=== PATIENT | male | born 1985 | race Caucasian/White ===

== ENCOUNTER 2018-08-17 12:37 | Emergency (ER) | payer OTHER, SELFPAY ==
[2018-08-17 12:53] VITALS: BP 145/94; PULSE 89; RESP 16; TEMP 36.9; O2SAT 100
--- NOTE | 2018-08-17 14:52 | ED.ABDPAIN ---
HPI - Abdominal Pain <ORI EspinozaP - Last Filed: 08/17/18 17:59> General Chief Complaint: Abdominal Pain Stated Complaint: ABDOMINAL PAIN Time Seen by Provider: 08/17/18 14:44 Source: patient Mode of arrival: ambulatory Limitations: no limitations History of Present Illness HPI narrative: pt c/o abd pain x2 weeks complaint: abdominal pain Onset (ago): week(s) (2) Pain Consistency: constant Location: RLQ Severity: moderate Quality: sharp Radiation: none Migration to: no migration Relieving factors: nothing Exacerbating factors: movement Associated symptoms: denies other symptoms Related Data Home Medications Medication Instructions Recorded Confirmed fluticasone [Flonase Allergy 1 spray INTRANASAL DAILY PRN 08/17/18 08/17/18 Relief] pseudoephedrine HCl [Sudafed] 30 mg PO PRN PRN 08/17/18 08/17/18 temazepam 15 - 30 mg PO BEDTIME PRN 08/17/18 08/17/18 Previous Rx's Medication Instructions Recorded tramadol [Ultram] 50 mg PO Q6H PRN #20 tab 08/17/18 Allergies Allergy/AdvReac Type Severity Reaction Status Date / Time No Known Drug Allergies Allergy Verified 08/17/18 12:53 Review of Systems <ORI EspinozaP - Last Filed: 08/17/18 17:59> Constitutional Reports as per HPI Cardiovascular Denies chest pain and Denies dyspnea Respiratory Denies dyspnea Gastrointestinal Gastrointestinal: Reports as per HPI, Reports abdominal pain, Denies melena, Denies hematochezia, Denies constipation, Denies diarrhea and Denies vomiting Genitourinary Denies dysuria Musculoskeletal Denies back pain Exam <HARINDER Espinoza - Last Filed: 08/17/18 17:59> Initial Vital Signs Initial Vital Signs: Vital Signs Temperature 98.5 F 08/17/18 12:53 Pulse Rate 89 08/17/18 12:53 Respiratory Rate 16 08/17/18 12:53 Blood Pressure 145/94 H 08/17/18 12:53 Pulse Oximetry 100 08/17/18 12:53 Const General: cooperative, healthy appearing, comfortable and well developed Nutritional Appearance: average body habitus Orientation: alert, awake and oriented x3 Resp Effort & Inspection: normal respiratory effort and able to speak in complete sentences Auscultation: clear to auscultation bilaterally Cardio Rate: regular rate Rhythm: regular rhythm Heart Sounds: S1 normal and S2 normal GI Inspection: normal to inspection Palpation: soft, No rigid and tender (RLQ) Auscultation: normal bowel sounds Back/Spine/Pelvis Cervical Spine: cervical ROM normal Thoracic/Lumbar Spine: thoraco-lumbar ROM limited Skin General: no rashes or lesions noted, elasticity normal, turgor normal and warm Neuro General: alert, awake and oriented x3 Cranial Nerves: CN's II-XI intact bilaterally Cognition: normal cognition Speech: speech normal Motor: muscle tone normal throughout Sensory Exam: no sensory deficits noted Psych Appearance: grossly normal and well kempt Mental Status: mental status grossly normal Speech and Movement: speech and movement normal Mood: congruent mood Affect: normal affect Attitude: cooperative Thought Process: normal Thought Content: normal Judgment: judgment good <Kylee Wagner DO - Last Filed: 08/18/18 20:46> Initial Vital Signs Initial Vital Signs: Vital Signs Temperature 98.5 F 08/17/18 12:53 Pulse Rate 89 08/17/18 12:53 Respiratory Rate 16 08/17/18 12:53 Blood Pressure 145/94 H 08/17/18 12:53 Pulse Oximetry 100 08/17/18 12:53 Course <HARINDER Espinoza - Last Filed: 08/17/18 17:59> Course Narrative: results and dc plan discussed Orders Ordered: Discontinued Medications Sodium Chloride (Normal Saline 0.9%) 1,000 mls @ 1,000 mls/hr IV BOLUS ONE Stop: 08/17/18 15:58 Last Infusion: 08/17/18 16:43 Dose: 0 mls/hr Admin: 08/17/18 15:29 Dose: 1,000 mls/hr Ketorolac Tromethamine (Toradol) 30 mg IV NOW ONE Stop: 08/17/18 15:00 Last Admin: 08/17/18 15:29 Dose: 30 mg Vital Signs - 8 hr 08/17/18 12:53 08/17/18 16:10 Temperature 98.5 F Pulse Rate 89 87 Respiratory Rate 16 18 Blood Pressure 145/94 H Blood Pressure [Right Arm] 140/92 H Pulse Oximetry 100 100 <Kylee Wagner DO - Last Filed: 08/18/18 20:46> Orders Ordered: Discontinued Medications Sodium Chloride (Normal Saline 0.9%) 1,000 mls @ 1,000 mls/hr IV BOLUS ONE Stop: 08/17/18 15:58 Last Infusion: 08/17/18 16:43 Dose: 0 mls/hr Admin: 08/17/18 15:29 Dose: 1,000 mls/hr Ketorolac Tromethamine (Toradol) 30 mg IV NOW ONE Stop: 08/17/18 15:00 Last Admin: 08/17/18 15:29 Dose: 30 mg Vital Signs - 8 hr 08/17/18 12:53 08/17/18 16:10 Temperature 98.5 F Pulse Rate 89 87 Respiratory Rate 16 18 Blood Pressure 145/94 H Blood Pressure [Right Arm] 140/92 H Pulse Oximetry 100 100 MDM - Abdominal Pain <HARINDER Espinoza - Last Filed: 08/17/18 17:59> Differential Diagnosis Differential diagnosis: Likely abdominal pain, acute appendicitis, calculus of kidney, diverticulitis and gastroenteritis Lab Data Result diagrams: 08/17/18 15:25 08/17/18 15:25 Lab Results 08/17/18 08/17/18 08/17/18 Range/Units 15:25 15:25 15:25 WBC 10.7 (4.5-11.0) X10^3/uL RBC 4.71 (4.5-5.9) X10^6/uL Hgb 14.5 (13.5-17.5) g/dL Hct 41.8 (41-53) % MCV 88.8 (80-100) fL MCH 30.8 (26-34) PG MCHC 34.7 (30-36) % RDW 13.3 (11.6-14.8) % Plt Count 338 (150-400) X10^3/uL Neut % (Auto) 48.5 L (50-75) % Lymph % (Auto) 32.7 (25-40) % [place] % (Auto) 9.6 (3-14) % Eos % (Auto) 8.9 H (2-4) % Baso % (Auto) 0.3 (0-2) % Neut # (Auto) 5200 (7596-1890) /uL Sodium 145 (137-145) mmol/L Potassium 4.0 (3.4-5.1) mmol/L Chloride 104 (98-107) mmol/L Carbon Dioxide 29 (22-32) mmol/L BUN 12 (9-20) mg/dL Creatinine 0.80 (0.66-1.25) mg/dL Estimated GFR > 60.0 (>60) mL/min BUN/Creatinine Ratio 15.0 (6-22) Glucose 85 (70-100) mg/dL Calcium 9.2 (8.4-10.2) mg/dL Total Bilirubin 0.6 (0.2-1.3) mg/dL AST 19 (17-59) IU/L ALT 28 (21-72) IU/L Alkaline Phosphatase 41 (38-126) U/L Total Protein 7.4 (6.3-8.2) g/dL Albumin 4.7 (3.5-5.0) g/dL Globulin 2.7 (1.7-4.1) g/dL Albumin/Globulin Ratio 1.7 (1.0-2.8) Amylase 43 (30-110) U/L Lipase 37 (23-300) U/L Urine Color Cancelled Urine Appearance Cancelled Urine pH Cancelled Ur Specific [place] Cancelled Urine Protein Cancelled Urine Glucose (UA) Cancelled Urine Ketones Cancelled Urine Occult Blood Cancelled Urine Nitrate Cancelled Urine Bilirubin Cancelled Urine Urobilinogen Cancelled Ur Leukocyte Esterase Cancelled Point of care testing: Urine Dip Bedside Urine Glucose 100 mg/dl Bedside Urine Bilirubin - Negative Bedside Urine Ketone - Negative Urine Specific [place] 1.010 Bedside Urine Occult Blood - Negative Bedside Urine Protein - Negative Bedside Urine Urobilinogen - Negative Bedside Urine Nitrite - Negative Bedside Urine Leukocytes - Negative Esterase Imaging Data CT scan - abdomen: Radiologist's impression: [address] [id number] [address] Scan Report Signed Patient: Sam Reyes WMR#: [id number] : 1985Acct:[id number] Age/Sex: 32 / MDate of Service: 08/17/18 Loc: ED Accession Number: [id number] Procedure: CT abdomen pelvis w con Ordering Provider: Rosalia Martinez PROCEDURE: CT ABDOMEN PELVIS W CON INDICATIONS: abdomen pain TECHNIQUE: After the administration of intravenous contrast, 5 mm thick sections acquired from the diaphragm to the symphysis. 5 mm coronal and sagittal reformats were acquired. For radiation dose reduction, the following was used: automated exposure control, adjustment of mA and/or kV according to patient size. COMPARISON: [facility], CT, ABDOMEN/PELVIS WITH CONTRAST, 03/24/2017, 16:14. FINDINGS: Image quality: Excellent. ABDOMEN: Lung bases: Lung bases are clear. Heart size is normal. Solid organs: Liver is normal in size and enhancement. Gallbladder is surgically absent.. Biliary system is non dilated. Pancreas enhances normally. Spleen is surgically absent. No adrenal nodules. Kidneys demonstrate normal size and enhancement, without hydronephrosis. Peritoneum and bowel: Bowel loops demonstrate normal wall thickness and caliber. No free fluid or air. Mild fecal stasis in the colon is seen. Appendix is visualized and is within normal limits. Mild sigmoid diverticulosis is seen, no evidence of acute diverticulitis. Nodes and vessels: No retroperitoneal or mesenteric adenopathy by size criteria. Aorta and inferior vena cava are normal in size. Miscellaneous: No ventral hernias. PELVIS: Genitourinary: Bladder wall thickness is normal. Miscellaneous: No inguinal hernias or adenopathy. Bones: No suspicious bony lesions. No vertebral body compression fractures. IMPRESSION: 1. Normal appendix. No bowel obstruction. Sigmoid diverticulosis with no CT evidence of acute diverticulitis. No free fluid or free air. 2. Prior cholecystectomy and splenectomy. Dictated by: Waldemar Marie M.D. on 08/17/2018 at 15:49 Approved by: Waldemar Marie M.D. on 08/17/2018 at 15:59 <Kylee Wagner DO - Last Filed: 08/18/18 20:46> Lab Data Lab Results 08/17/18 08/17/18 08/17/18 Range/Units 15:25 15:25 15:25 WBC 10.7 (4.5-11.0) X10^3/uL RBC 4.71 (4.5-5.9) X10^6/uL Hgb 14.5 (13.5-17.5) g/dL Hct 41.8 (41-53) % MCV 88.8 (80-100) fL MCH 30.8 (26-34) PG MCHC 34.7 (30-36) % RDW 13.3 (11.6-14.8) % Plt Count 338 (150-400) X10^3/uL Neut % (Auto) 48.5 L (50-75) % Lymph % (Auto) 32.7 (25-40) % [place] % (Auto) 9.6 (3-14) % Eos % (Auto) 8.9 H (2-4) % Baso % (Auto) 0.3 (0-2) % Neut # (Auto) 5200 (7376-8617) /uL Sodium 145 (137-145) mmol/L Potassium 4.0 (3.4-5.1) mmol/L Chloride 104 (98-107) mmol/L Carbon Dioxide 29 (22-32) mmol/L BUN 12 (9-20) mg/dL Creatinine 0.80 (0.66-1.25) mg/dL Estimated GFR > 60.0 (>60) mL/min BUN/Creatinine Ratio 15.0 (6-22) Glucose 85 (70-100) mg/dL Calcium 9.2 (8.4-10.2) mg/dL Total Bilirubin 0.6 (0.2-1.3) mg/dL AST 19 (17-59) IU/L ALT 28 (21-72) IU/L Alkaline Phosphatase 41 (38-126) U/L Total Protein 7.4 (6.3-8.2) g/dL Albumin 4.7 (3.5-5.0) g/dL Globulin 2.7 (1.7-4.1) g/dL Albumin/Globulin Ratio 1.7 (1.0-2.8) Amylase 43 (30-110) U/L Lipase 37 (23-300) U/L Urine Color Cancelled Urine Appearance Cancelled Urine pH Cancelled Ur Specific [place] Cancelled Urine Protein Cancelled Urine Glucose (UA) Cancelled Urine Ketones Cancelled Urine Occult Blood Cancelled Urine Nitrate Cancelled Urine Bilirubin Cancelled Urine Urobilinogen Cancelled Ur Leukocyte Esterase Cancelled Point of care testing: Urine Dip Bedside Urine Glucose 100 mg/dl Bedside Urine Bilirubin - Negative Bedside Urine Ketone - Negative Urine Specific [place] 1.010 Bedside Urine Occult Blood - Negative Bedside Urine Protein - Negative Bedside Urine Urobilinogen - Negative Bedside Urine Nitrite - Negative Bedside Urine Leukocytes - Negative Esterase Discharge Plan Departure Patient Disposition: Home Clinical Impression: Abdominal pain Discharge Date/Time: 08/17/18 16:44 Interventions: ED Discharge Assessment Last Done: 08/17/18 16:43 Instructions: DI for Abdominal Pain-Adult Prescriptions: New tramadol [Ultram] 50 mg tablet 50 mg PO Q6H PRN (Reason: pain) Qty: 20 RF: 0 No Action temazepam 15 mg capsule 15 - 30 mg PO BEDTIME PRN (Reason: Insomnia) RF: 0 pseudoephedrine HCl [Sudafed] 30 mg Tablet 30 mg PO PRN PRN (Reason: Allergy Symptoms) RF: 0 fluticasone [Flonase Allergy Relief] 50 mcg/actuation [place],Suspension 1 spray Intranasal DAILY PRN (Reason: Allergy Symptoms) RF: 0 Referrals: Khalida Day PA-C [Primary Care Provider] - (in approx 2-3 days ) <Kylee Wagner DO - Last Filed: 08/18/18 20:46> Cosign ED Attending Cosignature Attestation: I was immediately available in the department for consultation. This documentation has been reviewed and I agree with assessment and plan. Supervised by Kylee Wagner DO
--- NOTE | 2018-08-17 15:00 | DI.CT.S_ITS ---
PROCEDURE: CT ABDOMEN PELVIS W CON INDICATIONS: abdomen pain TECHNIQUE: After the administration of intravenous contrast, 5 mm thick sections acquired from the diaphragm to the symphysis. 5 mm coronal and sagittal reformats were acquired. For radiation dose reduction, the following was used: automated exposure control, adjustment of mA and/or kV according to patient size. COMPARISON: [facility], CT, ABDOMEN/PELVIS WITH CONTRAST, 03/24/2017, 16:14. FINDINGS: Image quality: Excellent. ABDOMEN: Lung bases: Lung bases are clear. Heart size is normal. Solid organs: Liver is normal in size and enhancement. Gallbladder is surgically absent.. Biliary system is non dilated. Pancreas enhances normally. Spleen is surgically absent. No adrenal nodules. Kidneys demonstrate normal size and enhancement, without hydronephrosis. Peritoneum and bowel: Bowel loops demonstrate normal wall thickness and caliber. No free fluid or air. Mild fecal stasis in the colon is seen. Appendix is visualized and is within normal limits. Mild sigmoid diverticulosis is seen, no evidence of acute diverticulitis. Nodes and vessels: No retroperitoneal or mesenteric adenopathy by size criteria. Aorta and inferior vena cava are normal in size. Miscellaneous: No ventral hernias. PELVIS: Genitourinary: Bladder wall thickness is normal. Miscellaneous: No inguinal hernias or adenopathy. Bones: No suspicious bony lesions. No vertebral body compression fractures. IMPRESSION: 1. Normal appendix. No bowel obstruction. Sigmoid diverticulosis with no CT evidence of acute diverticulitis. No free fluid or free air. 2. Prior cholecystectomy and splenectomy. Dictated by: Waldemar Marie M.D. on 08/17/2018 at 15:49 Approved by: Waldemar Marie M.D. on 08/17/2018 at 15:59
--- NOTE | 2018-08-17 15:17 | ED_ITS ---
HPI - Abdominal Pain <ORI EspinozaP - Last Filed: 08/17/18 17:59> General Chief Complaint: Abdominal Pain Stated Complaint: ABDOMINAL PAIN Time Seen by Provider: 08/17/18 14:44 Source: patient Mode of arrival: ambulatory Limitations: no limitations History of Present Illness HPI narrative: pt c/o abd pain x2 weeks complaint: abdominal pain Onset (ago): week(s) (2) Pain Consistency: constant Location: RLQ Severity: moderate Quality: sharp Radiation: none Migration to: no migration Relieving factors: nothing Exacerbating factors: movement Associated symptoms: denies other symptoms Related Data Home Medications Medication Instructions Recorded Confirmed fluticasone [Flonase Allergy 1 spray INTRANASAL DAILY PRN 08/17/18 08/17/18 Relief] pseudoephedrine HCl [Sudafed] 30 mg PO PRN PRN 08/17/18 08/17/18 temazepam 15 - 30 mg PO BEDTIME PRN 08/17/18 08/17/18 Previous Rx's Medication Instructions Recorded tramadol [Ultram] 50 mg PO Q6H PRN #20 tab 08/17/18 Allergies Allergy/AdvReac Type Severity Reaction Status Date / Time No Known Drug Allergies Allergy Verified 08/17/18 12:53 Review of Systems <ORI EspinozaP - Last Filed: 08/17/18 17:59> Constitutional Reports as per HPI Cardiovascular Denies chest pain and Denies dyspnea Respiratory Denies dyspnea Gastrointestinal Gastrointestinal: Reports as per HPI, Reports abdominal pain, Denies melena, Denies hematochezia, Denies constipation, Denies diarrhea and Denies vomiting Genitourinary Denies dysuria Musculoskeletal Denies back pain Exam <HARINDER Espinoza - Last Filed: 08/17/18 17:59> Initial Vital Signs Initial Vital Signs: Vital Signs Temperature 98.5 F 08/17/18 12:53 Pulse Rate 89 08/17/18 12:53 Respiratory Rate 16 08/17/18 12:53 Blood Pressure 145/94 H 08/17/18 12:53 Pulse Oximetry 100 08/17/18 12:53 Const General: cooperative, healthy appearing, comfortable and well developed Nutritional Appearance: average body habitus Orientation: alert, awake and oriented x3 Resp Effort & Inspection: normal respiratory effort and able to speak in complete sentences Auscultation: clear to auscultation bilaterally Cardio Rate: regular rate Rhythm: regular rhythm Heart Sounds: S1 normal and S2 normal GI Inspection: normal to inspection Palpation: soft, No rigid and tender (RLQ) Auscultation: normal bowel sounds Back/Spine/Pelvis Cervical Spine: cervical ROM normal Thoracic/Lumbar Spine: thoraco-lumbar ROM limited Skin General: no rashes or lesions noted, elasticity normal, turgor normal and warm Neuro General: alert, awake and oriented x3 Cranial Nerves: CN's II-XI intact bilaterally Cognition: normal cognition Speech: speech normal Motor: muscle tone normal throughout Sensory Exam: no sensory deficits noted Psych Appearance: grossly normal and well kempt Mental Status: mental status grossly normal Speech and Movement: speech and movement normal Mood: congruent mood Affect: normal affect Attitude: cooperative Thought Process: normal Thought Content: normal Judgment: judgment good <Kylee Wagner DO - Last Filed: 08/18/18 20:46> Initial Vital Signs Initial Vital Signs: Vital Signs Temperature 98.5 F 08/17/18 12:53 Pulse Rate 89 08/17/18 12:53 Respiratory Rate 16 08/17/18 12:53 Blood Pressure 145/94 H 08/17/18 12:53 Pulse Oximetry 100 08/17/18 12:53 Course <HARINDER Espinoza - Last Filed: 08/17/18 17:59> Course Narrative: results and dc plan discussed Orders Ordered: Discontinued Medications Sodium Chloride (Normal Saline 0.9%) 1,000 mls @ 1,000 mls/hr IV BOLUS ONE Stop: 08/17/18 15:58 Last Infusion: 08/17/18 16:43 Dose: 0 mls/hr Admin: 08/17/18 15:29 Dose: 1,000 mls/hr Ketorolac Tromethamine (Toradol) 30 mg IV NOW ONE Stop: 08/17/18 15:00 Last Admin: 08/17/18 15:29 Dose: 30 mg Vital Signs - 8 hr 08/17/18 12:53 08/17/18 16:10 Temperature 98.5 F Pulse Rate 89 87 Respiratory Rate 16 18 Blood Pressure 145/94 H Blood Pressure [Right Arm] 140/92 H Pulse Oximetry 100 100 <Kylee Wagner DO - Last Filed: 08/18/18 20:46> Orders Ordered: Discontinued Medications Sodium Chloride (Normal Saline 0.9%) 1,000 mls @ 1,000 mls/hr IV BOLUS ONE Stop: 08/17/18 15:58 Last Infusion: 08/17/18 16:43 Dose: 0 mls/hr Admin: 08/17/18 15:29 Dose: 1,000 mls/hr Ketorolac Tromethamine (Toradol) 30 mg IV NOW ONE Stop: 08/17/18 15:00 Last Admin: 08/17/18 15:29 Dose: 30 mg Vital Signs - 8 hr 08/17/18 12:53 08/17/18 16:10 Temperature 98.5 F Pulse Rate 89 87 Respiratory Rate 16 18 Blood Pressure 145/94 H Blood Pressure [Right Arm] 140/92 H Pulse Oximetry 100 100 MDM - Abdominal Pain <HARINDER Espinoza - Last Filed: 08/17/18 17:59> Differential Diagnosis Differential diagnosis: Likely abdominal pain, acute appendicitis, calculus of kidney, diverticulitis and gastroenteritis Lab Data Result diagrams: 08/17/18 15:25 08/17/18 15:25 Lab Results 08/17/18 08/17/18 08/17/18 Range/Units 15:25 15:25 15:25 WBC 10.7 (4.5-11.0) X10^3/uL RBC 4.71 (4.5-5.9) X10^6/uL Hgb 14.5 (13.5-17.5) g/dL Hct 41.8 (41-53) % MCV 88.8 (80-100) fL MCH 30.8 (26-34) PG MCHC 34.7 (30-36) % RDW 13.3 (11.6-14.8) % Plt Count 338 (150-400) X10^3/uL Neut % (Auto) 48.5 L (50-75) % Lymph % (Auto) 32.7 (25-40) % [place] % (Auto) 9.6 (3-14) % Eos % (Auto) 8.9 H (2-4) % Baso % (Auto) 0.3 (0-2) % Neut # (Auto) 5200 (0800-2561) /uL Sodium 145 (137-145) mmol/L Potassium 4.0 (3.4-5.1) mmol/L Chloride 104 (98-107) mmol/L Carbon Dioxide 29 (22-32) mmol/L BUN 12 (9-20) mg/dL Creatinine 0.80 (0.66-1.25) mg/dL Estimated GFR > 60.0 (>60) mL/min BUN/Creatinine Ratio 15.0 (6-22) Glucose 85 (70-100) mg/dL Calcium 9.2 (8.4-10.2) mg/dL Total Bilirubin 0.6 (0.2-1.3) mg/dL AST 19 (17-59) IU/L ALT 28 (21-72) IU/L Alkaline Phosphatase 41 (38-126) U/L Total Protein 7.4 (6.3-8.2) g/dL Albumin 4.7 (3.5-5.0) g/dL Globulin 2.7 (1.7-4.1) g/dL Albumin/Globulin Ratio 1.7 (1.0-2.8) Amylase 43 (30-110) U/L Lipase 37 (23-300) U/L Urine Color Cancelled Urine Appearance Cancelled Urine pH Cancelled Ur Specific [place] Cancelled Urine Protein Cancelled Urine Glucose (UA) Cancelled Urine Ketones Cancelled Urine Occult Blood Cancelled Urine Nitrate Cancelled Urine Bilirubin Cancelled Urine Urobilinogen Cancelled Ur Leukocyte Esterase Cancelled Point of care testing: Urine Dip Bedside Urine Glucose 100 mg/dl Bedside Urine Bilirubin - Negative Bedside Urine Ketone - Negative Urine Specific [place] 1.010 Bedside Urine Occult Blood - Negative Bedside Urine Protein - Negative Bedside Urine Urobilinogen - Negative Bedside Urine Nitrite - Negative Bedside Urine Leukocytes - Negative Esterase Imaging Data CT scan - abdomen: Radiologist's impression: [address] [address] [address] Scan Report Signed Patient: Sam Reyes WMR#: [id number] : 1985Acct:[id number] Age/Sex: 32 / MDate of Service: 08/17/18 Loc: ED Accession Number: [id number] Procedure: CT abdomen pelvis w con Ordering Provider: Rosalia Martinez PROCEDURE: CT ABDOMEN PELVIS W CON INDICATIONS: abdomen pain TECHNIQUE: After the administration of intravenous contrast, 5 mm thick sections acquired from the diaphragm to the symphysis. 5 mm coronal and sagittal reformats were acquired. For radiation dose reduction, the following was used: automated exposure control, adjustment of mA and/or kV according to patient size. COMPARISON: [facility], CT, ABDOMEN/PELVIS WITH CONTRAST, 03/24/2017, 16: 14. FINDINGS: Image quality: Excellent. ABDOMEN: Lung bases: Lung bases are clear. Heart size is normal. Solid organs: Liver is normal in size and enhancement. Gallbladder is surgically absent.. Biliary system is non dilated. Pancreas enhances normally. Spleen is surgically absent. No adrenal nodules. Kidneys demonstrate normal size and enhancement, without hydronephrosis. Peritoneum and bowel: Bowel loops demonstrate normal wall thickness and caliber. No free fluid or air. Mild fecal stasis in the colon is seen. Appendix is visualized and is within normal limits. Mild sigmoid diverticulosis is seen, no evidence of acute diverticulitis. Nodes and vessels: No retroperitoneal or mesenteric adenopathy by size criteria. Aorta and inferior vena cava are normal in size. Miscellaneous: No ventral hernias. PELVIS: Genitourinary: Bladder wall thickness is normal. Miscellaneous: No inguinal hernias or adenopathy. Bones: No suspicious bony lesions. No vertebral body compression fractures. IMPRESSION: 1. Normal appendix. No bowel obstruction. Sigmoid diverticulosis with no CT evidence of acute diverticulitis. No free fluid or free air. 2. Prior cholecystectomy and splenectomy. Dictated by: Waldemar Marie M.D. on 08/17/2018 at 15:49 Approved by: Waldemar Marie M.D. on 08/17/2018 at 15:59 <Kylee Wagner DO - Last Filed: 08/18/18 20:46> Lab Data Lab Results 08/17/18 08/17/18 08/17/18 Range/Units 15:25 15:25 15:25 WBC 10.7 (4.5-11.0) X10^3/uL RBC 4.71 (4.5-5.9) X10^6/uL Hgb 14.5 (13.5-17.5) g/dL Hct 41.8 (41-53) % MCV 88.8 (80-100) fL MCH 30.8 (26-34) PG MCHC 34.7 (30-36) % RDW 13.3 (11.6-14.8) % Plt Count 338 (150-400) X10^3/uL Neut % (Auto) 48.5 L (50-75) % Lymph % (Auto) 32.7 (25-40) % [place] % (Auto) 9.6 (3-14) % Eos % (Auto) 8.9 H (2-4) % Baso % (Auto) 0.3 (0-2) % Neut # (Auto) 5200 (4920-1474) /uL Sodium 145 (137-145) mmol/L Potassium 4.0 (3.4-5.1) mmol/L Chloride 104 (98-107) mmol/L Carbon Dioxide 29 (22-32) mmol/L BUN 12 (9-20) mg/dL Creatinine 0.80 (0.66-1.25) mg/dL Estimated GFR > 60.0 (>60) mL/min BUN/Creatinine Ratio 15.0 (6-22) Glucose 85 (70-100) mg/dL Calcium 9.2 (8.4-10.2) mg/dL Total Bilirubin 0.6 (0.2-1.3) mg/dL AST 19 (17-59) IU/L ALT 28 (21-72) IU/L Alkaline Phosphatase 41 (38-126) U/L Total Protein 7.4 (6.3-8.2) g/dL Albumin 4.7 (3.5-5.0) g/dL Globulin 2.7 (1.7-4.1) g/dL Albumin/Globulin Ratio 1.7 (1.0-2.8) Amylase 43 (30-110) U/L Lipase 37 (23-300) U/L Urine Color Cancelled Urine Appearance Cancelled Urine pH Cancelled Ur Specific [place] Cancelled Urine Protein Cancelled Urine Glucose (UA) Cancelled Urine Ketones Cancelled Urine Occult Blood Cancelled Urine Nitrate Cancelled Urine Bilirubin Cancelled Urine Urobilinogen Cancelled Ur Leukocyte Esterase Cancelled Point of care testing: Urine Dip Bedside Urine Glucose 100 mg/dl Bedside Urine Bilirubin - Negative Bedside Urine Ketone - Negative Urine Specific [place] 1.010 Bedside Urine Occult Blood - Negative Bedside Urine Protein - Negative Bedside Urine Urobilinogen - Negative Bedside Urine Nitrite - Negative Bedside Urine Leukocytes - Negative Esterase Discharge Plan Departure Patient Disposition: Home Clinical Impression: Abdominal pain Discharge Date/Time: 08/17/18 16:44 Interventions: ED Discharge Assessment Last Done: 08/17/18 16:43 Instructions: DI for Abdominal Pain-Adult Prescriptions: New tramadol [Ultram] 50 mg tablet 50 mg PO Q6H PRN (Reason: pain) Qty: 20 RF: 0 No Action temazepam 15 mg capsule 15 - 30 mg PO BEDTIME PRN (Reason: Insomnia) RF: 0 pseudoephedrine HCl [Sudafed] 30 mg Tablet 30 mg PO PRN PRN (Reason: Allergy Symptoms) RF: 0 fluticasone [Flonase Allergy Relief] 50 mcg/actuation [place],Suspension 1 spray Intranasal DAILY PRN (Reason: Allergy Symptoms) RF: 0 Referrals: Khalida Day PA-C [Primary Care Provider] - (in approx 2-3 days ) <Kylee Wagner DO - Last Filed: 08/18/18 20:46> Cosign ED Attending Cosignature Attestation: I was immediately available in the department for consultation. This documentation has been reviewed and I agree with assessment and plan. Supervised by Kylee Wagner DO
[2018-08-17] MEDS: KETOROLAC 60 MG/2 ML VIAL 30 MG IV (15:29)
[2018-08-17] MEDS: SODIUM CHLORIDE 0.9% 1,000 ML 1000 ML IV (15:29)
[2018-08-17 15:32] LABS: Add Manual Diff / Slide Review NO; Basophils Percent Auto 0.3 % (0-2); Eosinophils Percent Auto 8.9 % (2-4); Hematocrit 41.8 % (41-53); Hemoglobin 14.5 g/dL (13.5-17.5); Lymphocytes Percent Auto 32.7 % (25-40); Mean Corpuscular HGB Conc 34.7 % (30-36); Mean Corpuscular Hemoglobin 30.8 PG (26-34); Mean Corpuscular Volume 88.8 fL (80-100); Monocytes Percent Auto 9.6 % (3-14); Neutrophils Absolute Auto 5200 /uL (3000-5900); Neutrophils Percent Auto 48.5 % (50-75); Platelet Count 338 X10^3/uL (150-400); Red Blood Cell Count 4.71 X10^6/uL (4.5-5.9); Red Cell Distribution Width 13.3 % (11.6-14.8); White Blood Cell Count 10.7 X10^3/uL (4.5-11.0)
[2018-08-17 15:43] LABS: Alanine Aminotransferase 28 IU/L (21-72); Albumin 4.7 g/dL (3.5-5.0); Albumin Globulin Ratio 1.7 (1.0-2.8); Alkaline Phosphatase 41 U/L (38-126); Amylase 43 U/L (30-110); Aspartate Aminotransferase 19 IU/L (17-59); Bilirubin Total 0.6 mg/dL (0.2-1.3); Blood Urea Nitrogen 12 mg/dL (9-20); Calcium 9.2 mg/dL (8.4-10.2); Carbon Dioxide 29 mmol/L (22-32); Chloride 104 mmol/L (98-107); Estimated Glomerular Filt Rate > 60.0 mL/min (>60); Globulin 2.7 g/dL (1.7-4.1); Glucose 85 mg/dL (70-100); HEMOLYSIS < 15 (0-50); Lipase 37 U/L (23-300); Sodium 145 mmol/L (137-145); Total Protein 7.4 g/dL (6.3-8.2)
[2018-08-17 16:10] VITALS: BP 140/92; PULSE 87; RESP 18; O2SAT 100
== END 2018-08-17 16:44 | disposition home or self-care (01) ==
PROVIDERS: Emergency Provider Nurse Practitioner; PCP Physician Assistant
DX: R10.9 Unspecified abdominal pain (principal)
CPT/HCPCS: 36591; 74177; 80053; 81003; 82150; 83690; 85025; 96361; 96374; 99283; 99285; J1885

== ENCOUNTER → 2018-10-18 16:37 | Outpatient (CLI) | payer OTHER, SELFPAY ==
--- NOTE | 2018-10-18 | DI.MRI.S_ITS ---
PROCEDURE: MR THORACIC SPINE WO/W CON INDICATIONS: BACK PAIN TECHNIQUE: Noncontrast sagittal T1 spin echo and T2 fast spin echo, sagittal STIR, axial T1 and T2 fast spin echo through the thoracic spine. After the administration of contrast, axial and sagittal T1 spin echo with fat saturation through the thoracic spine. COMPARISON: [facility], MR, MR LUMBAR SPINE WO/W CON, 10/18/2018, 16:53. [facility], CT, CT ABDOMEN PELVIS W CON, 08/17/2018, 15:30. FINDINGS: Image quality: Diagnostic, with note made of motion artifact. Alignment and curvature: There is normal bony alignment. Marrow: Marrow is of normal overall signal. No acute vertebral body compression fractures. Spinal cord: Visualized spinal cord is of normal signal and size, without abnormal enhancement. Paraspinous soft tissues: No paravertebral masses or abnormal enhancement. Miscellaneous: Central canal and foramina appear widely patent at all scanned levels. IMPRESSION: No focal abnormality is seen. Specifically, no significant disc pathology, neural foraminal narrowing, or central canal narrowing can be seen. No abnormal enhancement. Dictated by: Ed Lara M.D. on 10/19/2018 at 8:59 Approved by: Ed Lara M.D. on 10/19/2018 at 9:01
--- NOTE | 2018-10-18 16:44 | DI.MRI.S_ITS ---
PROCEDURE: MR LUMBAR SPINE WO/W CON INDICATIONS: CHRONIC BACK PAIN TECHNIQUE: Noncontrast sagittal T1 spin echo and T2 fast spin echo, sagittal STIR, axial T1 and T2 fast spin echo through the lumbar spine. In cases with scoliosis, additional coronal T2 fast spin echo may be performed. After the administration of contrast, sagittal and axial T1 spin echo with fat saturation through the lumbar spine. COMPARISON: [facility], MR, MR THORACIC SPINE WO/W CON, 10/18/2018, 17:12. [facility], CT, ABDOMEN/PELVIS WITH CONTRAST, 03/24/2017, 16:14. [facility], CT, CT ABDOMEN PELVIS W CON, 08/17/2018, 15:30. FINDINGS: Image quality: Excellent. Alignment and curvature: There is normal bony alignment. Marrow: Marrow is of normal overall signal. No acute vertebral body compression fractures. No suspicious marrow enhancement. Spinal cord: Conus medullaris terminates at the L1 level. Visualized spinal cord demonstrates normal signal, without suspicious enhancement. Paraspinous soft tissues: No paravertebral masses or abnormal enhancement. T12-L1: Normal appearance. L1-L2: Normal appearance. L2-L3: Normal appearance. L3-L4: Normal appearance. L4-L5: Normal appearance. L5-S1: The disc height and disk signal are well-preserved. Mild generalized disc bulge is seen. An annular fissure can be seen posteriorly, as on series 4 image 8. No significant neural foraminal or central canal narrowing can be seen. IMPRESSION: There is an annular fissure along the posterior aspect of the L5-S1 disc. No significant neural foraminal or central canal narrowing can be seen throughout. No abnormal enhancement. Dictated by: Ed Lara M.D. on 10/19/2018 at 9:01 Approved by: Ed Lara M.D. on 10/19/2018 at 9:04
== END ==
PROVIDERS: Visit Provider Physician Assistant Medical
DX: M54.9 Dorsalgia, unspecified (principal); M51.27 Other intervertebral disc displacement, lumbosacral region; G89.29 Other chronic pain
CPT/HCPCS: 72157; 72158; A9579

== ENCOUNTER → 2019-06-14 06:48 | Outpatient (CLI) | payer OTHER, SELFPAY ==
--- NOTE | 2019-06-14 | DI.CT.S_ITS ---
PROCEDURE: CT SOFT TISSUE NECK WO/W CON INDICATIONS: LEFT PAROTITIS TECHNIQUE: Before and after the administration of intravenous contrast, 2.0 mm axial sections acquired through the neck and down to the irene. Additional 2.0 mm coronal and sagittal reformats were generated of the contrast enhanced images. For radiation dose reduction, the following was used: automated exposure control. COMPARISON: None. FINDINGS: Image quality: Excellent. Lymph nodes: No enlarged lymph nodes seen throughout the neck. Vessels: Visualized vasculature appears patent. Neck spaces: The oropharynx, nasopharynx, and pharynx demonstrate no mucosal lesions. The vocal cords, false vocal cords, pyriform sinuses, epiglottis, vallecula, and tongue base all appear normal. Extramucosal spaces appear unremarkable. Glands: The thyroid gland is appear normal. Parotid glands are symmetrical in appearance. There is a 4 mm soft tissue density is identified on the superior aspect of the left parotid gland adjacent to metallic marker, placed at area of palpable concern. Calcification is noted along the inferomedial aspect of the right submandibular gland. No associated inflammatory change. Left submandibular gland is unremarkable. Miscellaneous: Visualized lungs appear clear. Superficial soft tissues appear normal. Bones: No suspicious bony lesions. Visualized sinuses and mastoids appear unremarkable. IMPRESSION: 1. The parotid glands demonstrate no visualized inflammatory change. It is noted there is a 4 mm soft tissue density along the superior lateral margin of the left parotid gland corresponding to area of palpable concern. This could represent a small periparotid lymph node. However, other etiology such as pleomorphic adenoma or less likely, malignant etiologies should be considered if appropriate. 2. Calcification is noted along the superior medial margin of the right submandibular gland without visualized inflammatory change. Dictated by: Jesica Hutchinson M.D. on 06/14/2019 at 7:40 Approved by: Jesica Hutchinson M.D. on 06/14/2019 at 7:48
== END ==
PROVIDERS: Visit Provider Otolaryngology
DX: K11.5 Sialolithiasis (principal)
CPT/HCPCS: 70492

== ENCOUNTER → 2021-05-30 07:24 | Outpatient (CLI) | payer OTHER, SELFPAY ==
[2021-05-30 08:18] LABS: Add Manual Diff / Slide Review NO; Basophils Absolute Auto 100 /uL (0-100); Basophils Percent Auto 0.5 % (0-2); Eosinophils Absolute Auto 1100 /uL (0-450); Eosinophils Percent Auto 7.8 % (2-4); Hematocrit 50.4 % (41-53); Hemoglobin 17.4 g/dL (13.5-17.5); Lymphocytes Absolute Auto 3300 /uL (1100-4500); Lymphocytes Percent Auto 24.2 % (25-40); Mean Corpuscular HGB Conc 34.4 % (30-36); Mean Corpuscular Hemoglobin 31.9 PG (26-34); Mean Corpuscular Volume 92.6 fL (80-100); Monocytes Absolute Auto 1500 /uL (0-900); Monocytes Percent Auto 11.3 % (3-14); Neutrophils Absolute Auto 7600 /uL (1500-7000); Neutrophils Percent Auto 56.2 % (50-75); Platelet Count 368 X10^3/uL (150-400); Red Blood Cell Count 5.45 X10^6/uL (4.5-5.9); Red Cell Distribution Width 13.9 % (11.6-14.8); White Blood Cell Count 13.5 X10^3/uL (4.5-11.0)
[2021-05-30 08:45] LABS: Alanine Aminotransferase 39 IU/L (<50); Albumin 4.5 g/dL (3.5-5.0); Albumin Globulin Ratio 1.6 (1.0-2.8); Alkaline Phosphatase 76 U/L (38-126); Aspartate Aminotransferase 33 IU/L (17-59); BUN Creatinine Ratio 12.9 (6-22); Bilirubin Total 0.6 mg/dL (0.2-1.3); Blood Urea Nitrogen 9 mg/dL (9-20); Calcium 9.8 mg/dL (8.4-10.2); Carbon Dioxide 28 mmol/L (22-32); Chloride 102 mmol/L (98-107); Cholesterol 276 mg/dL (140-199); Estimated Glomerular Filt Rate > 60.0 mL/min (>60); Globulin 2.9 g/dL (1.7-4.1); Glucose 107 mg/dL (70-100); HDL Cholesterol 43 mg/dL (40-60); HEMOLYSIS < 15 (0-50); LDL Cholesterol Calculated 198 mg/dL (<100); Potassium 5.1 mmol/L (3.4-5.1); Sodium 138 mmol/L (137-145); Total Protein 7.4 g/dL (6.3-8.2); Triglycerides 174 mg/dL (35-150)
[2021-05-30 21:24] LABS: UR Morphine/Opiate cutoff 300 Negative (Negative); Ur Creatinine Normal (Normal); Ur Specific Gravity Normal (Normal); Urine Amphetamines Negative (Negative); Urine Barbiturates Negative (Negative); Urine Benzodiazepines Negative (Negative); Urine Cocaine Negative (Negative); Urine MDMA Negative (Negative); Urine Methadone Negative (Negative); Urine Methamphetamines Negative (Negative); Urine Oxycodone Negative (Negative); Urine Phencyclidine Negative (Negative); Urine Tetrahydrocannabinol Negative (Negative); Urine Tricyclic Antidepressant Negative (Negative); Urine pH Normal (Normal)
== END ==
PROVIDERS: PCP Registered Nurse; Referring Provider Registered Nurse; Visit Provider Registered Nurse
DX: E78.5 Hyperlipidemia, unspecified (principal); F90.9 Attention-deficit hyperactivity disorder, unspecified type; Z90.81 Acquired absence of spleen; Z79.899 Other long term (current) drug therapy
CPT/HCPCS: 36415; 80053; 80061; 80305; 85025

== ENCOUNTER → 2021-09-14 12:47 | Outpatient (CLI) | payer OTHER, SELFPAY ==
[2021-09-14 14:10] LABS: Alanine Aminotransferase 72 IU/L (<50); Albumin 4.6 g/dL (3.5-5.0); Albumin Globulin Ratio 1.6 (1.0-2.8); Alkaline Phosphatase 49 U/L (38-126); Aspartate Aminotransferase 53 IU/L (17-59); Blood Urea Nitrogen 12 mg/dL (9-20); Carbon Dioxide 27 mmol/L (22-32); Chloride 105 mmol/L (98-107); Estimated Glomerular Filt Rate > 60.0 mL/min (>60); Globulin 2.9 g/dL (1.7-4.1); Glucose 88 mg/dL (70-100); HEMOLYSIS 42 (0-50); Potassium 4.7 mmol/L (3.4-5.1); Sodium 141 mmol/L (137-145); Total Protein 7.5 g/dL (6.3-8.2)
== END ==
PROVIDERS: PCP Registered Nurse; Referring Provider Registered Nurse; Visit Provider Registered Nurse
DX: F90.9 Attention-deficit hyperactivity disorder, unspecified type (principal); I10 Essential (primary) hypertension
CPT/HCPCS: 36415; 80053